=== PATIENT | female | born 1975 | race African-American/Black ===

== ENCOUNTER 2017-02-11 09:16 | Emergency (ER) | payer MEDICAID ==
[~2017-02-11] VITALS: Ht 180.3 cm; Wt 73.0 kg
[2017-02-11 09:33] VITALS: BP 133/55
[2017-02-11] MEDS ORDERED: BACITRACIN ZINC OINT UDPKT TOP ONE (10:00)
[2017-02-11] MEDS ORDERED: LIDOCAINE HCL 1% 20ML VIAL (Pyxis) INJ MC ONE (10:00)
== END 2017-02-11 11:57 | disposition home or self-care (01) ==
LOC: ER 10:28
DX: L02.412 Cutaneous abscess of left axilla (principal); F17.210 Nicotine dependence, cigarettes, uncomplicated
CPT/HCPCS: 10060; 99283; J3490; X7700; Z7610

== ENCOUNTER 2017-02-13 13:46 | Emergency (ER) | payer MEDICAID ==
[~2017-02-13] VITALS: Ht 180.3 cm; Wt 70.5 kg
[2017-02-13 14:39] VITALS: BP 117/77
[2017-02-13] MEDS ORDERED: SULF1TAB47 PO (14:39)
[2017-02-13] MEDS ORDERED: CEPH500T PO (14:39)
[2017-02-13] MEDS ORDERED: BACITRACIN ZINC OINT UDPKT TOP ONE (15:00)
== END 2017-02-13 16:25 | disposition home or self-care (01) ==
LOC: ER 15:37
DX: Z48.01 Encounter for change or removal of surgical wound dressing (principal); Z79.899 Other long term (current) drug therapy
CPT/HCPCS: 99281; Z7610

== ENCOUNTER 2017-12-25 15:01 | Emergency (ER) | payer MEDICAID, OTHER ==
[~2017-12-25] VITALS: Ht 177.8 cm; Wt 76.0 kg
[~2017-12-25 15:01] MED LIST: CEPH500T PO; SULF1TAB47 PO
[2017-12-25] MEDS ORDERED: KETOROLAC 60MG/2ML VIAL IM STA (16:13)
[2017-12-25] MEDS ORDERED: LIDOCAINE HCL 1% 20ML VIAL (Pyxis) INJ MC ONE (16:15)
[2017-12-25] MEDS ORDERED: TETANUS, DIPHTHERIA, PERTUSSIS VAC/PF 0.5ML (>7YR OLD) IM ONE (16:15)
[2017-12-25] MEDS ORDERED: BACITRACIN ZINC OINT UDPKT TOP ONE (16:15)
[2017-12-25 17:46] VITALS: BP 121/89
== END 2017-12-25 17:47 | disposition home or self-care (01) ==
LOC: ER 16:06
DX: L02.411 Cutaneous abscess of right axilla (principal); L73.2 Hidradenitis suppurativa
CPT/HCPCS: 10060; 81025; 90471; 90715; 96372; 99284; J1885; J3490; Z7610

== ENCOUNTER 2017-12-29 09:17 | Emergency (ER) | payer MEDICAID ==
[~2017-12-29] VITALS: Ht 177.8 cm; Wt 77.0 kg
[2017-12-29 11:14] VITALS: BP 104/64
== END 2017-12-29 11:14 | disposition home or self-care (01) ==
LOC: ER 10:02
DX: Z48.817 Encounter for surgical aftercare following surgery on the skin and subcutaneous tissue (principal); L02.411 Cutaneous abscess of right axilla
CPT/HCPCS: 99281

== ENCOUNTER 2018-06-11 03:46 | Emergency (ER) | payer MEDICAID ==
[~2018-06-11] VITALS: Ht 177.8 cm; Wt 90.4 kg
[2018-06-11] MEDS ORDERED: ACETAMINOPHEN 500MG TABLET PO ONE (09:15)
[2018-06-11] MEDS ORDERED: MORPHINE SULFATE 10 MG/ML CPJ IM ONE (09:15)
[2018-06-11] MEDS ORDERED: LIDOCAINE HCL 1% 20ML VIAL (Pyxis) INJ MC ONE (09:15)
[2018-06-11] MEDS ORDERED: ONDANSETRON 4MG ODT PO ONE (09:15)
[2018-06-11] MEDS ORDERED: BACITRACIN ZINC OINT UDPKT TOP ONE (09:15)
[2018-06-11] MEDS ORDERED: LIDOCAINE HCL/PF 1% 10 MG/ML 5ML VIAL IJ NR (09:45)
[2018-06-11 11:15] VITALS: BP 118/74
== END 2018-06-11 11:16 | disposition home or self-care (01) ==
LOC: ER 03:46
DX: L02.412 Cutaneous abscess of left axilla (principal); F17.200 Nicotine dependence, unspecified, uncomplicated
CPT/HCPCS: 10060; 96372; 99284; J2270; J3490; Q0162; 99283